=== PATIENT | female | born 1960 | race African-American/Black ===

== ENCOUNTER 2018-09-27 11:39 | Outpatient (CLI) | payer BC ==
--- NOTE | 2018-09-27 13:22 | RAD ---
RADIOGRAPH RIGHT KNEE 3 VIEWS: DATE: 09/27/2018. HISTORY: A 58-year-old female with chronic knee pain. FINDINGS: Standing views. Mild to moderate joint space narrowing, mild irregularity of articular surfaces, and small osteophytes, at medial compartment. Lateral and patellofemoral compartment joint spaces are ma intained, with minimal osteophytes. No fracture or dislocation. No destructive osseous lesion. No joint effusion. IMPRESSION: Mild to moderate osteoarthrosis of the medial compartment. POS: JESSIE
--- NOTE | 2018-09-27 13:27 | RAD ---
RADIOGRAPH LEFT KNEE 3 VIEWS: DATE: 09/27/2018. HISTORY: A 58-year-old female with chronic left knee pain. FINDINGS: Three standing views. Mild to moderate joint space narrowing in the medial compartment with small ma rginal osteophytes. Lateral compartment joint space is maintained. Minimal osteophytosis at the lat eral and patellofemoral compartments. No moderate-sized or large joint effusion. No fracture or kaylene tructive osseous lesion. IMPRESSION: Mild to moderate osteoarthrosis of the medial compartment. POS: JESSIE
== END 2018-09-27 11:40 | disposition home or self-care (01) ==
LOC: MADRAD 11:39
PROVIDERS: ATTEND Family Medicine
DX: M25.561 Pain in right knee (principal); M25.562 Pain in left knee; M17.0 Bilateral primary osteoarthritis of knee

== ENCOUNTER 2024-05-20 09:19 | Emergency (ER) | payer BC, MEDICARE ==
[2024-05-20 09:48] LABS: Bilirubin Negative (Negative); Blood, Urine Small (Negative); Clarity Hazy (Clear); Glucose, Urine (Dipstick) Negative (Negative); Ketone, Urine Negative (Negative); Leukocyte Negative (Negative); Nitrite Negative (Negative); Protein, Urine (Dipstick) Negative (Neg-Trace); Specific Gravity, Urine 1.025 (1.005-1.030); pH, Urine 6.5 (5.0-9.0)
[2024-05-20 10:12] LABS: Bacteria/HPF 1+ HPF (None Seen); CAUTI Indications for Culture Dysuria,urgency,freq; RBC/HPF 0-3 HPF (0-3); WBC/HPF 0-3 HPF (0-3)
[2024-05-20 10:13] LABS: Urine Culture Reflex No No
[2024-05-20 10:27] LABS: Band 4 % (5-11); Eosinophils 2 % (0-10); Hematocrit 40.3 % (36.0-47.0); Hemoglobin 12.2 g/dL (12.0-16.0); Hypochromia SLIGHT = 6-15 cells (100X) (0-5/hpf); Lymphocytes 29 % (21-51); MDiff Complete? YES; Mean Corpuscular HGB CONC 30.2 g/dL (32.0-36.0); Mean Corpuscular Volume 92.7 fl (78.0-98.0); Mean Platelet Volume 7.5 fL (7.4-10.4); Monocytes 6 % (0-10); Neutrophil 57 % (42-75); Platelet Adequacy Comment Appears Adequate; Platelet Count 248 10x3/uL (130-400); RBC Distribution Width 12.3 % (11.5-14.5); Red Blood Cell (RBC) Count 4.35 mill/uL (4.20-5.40); White Blood Cell (WBC) Count 5.8 10x3/uL (4.8-10.8)
[2024-05-20 10:29] LABS: ALT (SGPT) 11 U/L (8-55); AST (SGOT) 13 U/L (5-34); Albumin 3.6 g/dL (3.4-4.8); Alkaline Phosphatase 36 U/L (40-110); Anion Gap 13 mmol/L (10-20); BUN (Urea Nitrogen) 11 mg/dL (9.8-20.1); Bilirubin, Total 0.6 mg/dL (0.2-1.2); Calc. Creatinine Clearance 0 mL/min (70-130); Carbon Dioxide 23 mmol/L (23-31); Chloride 109 mmol/L (98-107); Estimated GFR 61; Globulin 3.1 g/dL (2.4-3.5); Glucose 86 mg/dL (80-115); Potassium 4.4 mmol/L (3.5-5.1); Protein, Total 6.7 g/dL (5.8-8.1); Sodium 141 mmol/L (136-145)
== END 2024-05-20 11:00 | disposition home or self-care (01) ==
LOC: MADERS 09:19
DX: S90.861A Insect bite (nonvenomous), right foot, initial encounter (principal); S90.862A Insect bite (nonvenomous), left foot, initial encounter; I50.9 Heart failure, unspecified; F17.210 Nicotine dependence, cigarettes, uncomplicated; W57.XXXA Bitten or stung by nonvenomous insect and other nonvenomous arthropods, initial encounter
CPT/HCPCS: 36415; 80053; 81001; 83880; 85025; 86140; 93005; 99282